=== PATIENT | female | born 1975 | race Caucasian/White ===

== ENCOUNTER → 2017-02-27 | Outpatient (CLI) | payer MEDICARE, OTHER ==
--- NOTE | ~2017-02-27 | US17 ---
[facility] A Service of [facility] / [facility] RADIOLOGY TEXT RESULTS PATIENT: SILVIANO LEE LOCATION: [facility] : 71 UNIT #: [id number] AGE: [address]: SUSANNA MARIN SEX: F ORDER DR: [id number] [place] [id number] [facility]. [place], [place] [address] [id number] O MR#: [id number] Acc #: [id number] NAME: SILVIANO LEE : 1975 SEX: F STUDY DATE/TIME: 02/27/2017 13:56 UNIT: [facility] ROOM: STUDY DESCRIPTION: US Breast Bilateral Ordering Physician: Ochoa Malcolm Primary Care Physician: Patricio Juarez Sr., M.D. MEDICAL IMAGING REPORT This report is preliminary unless electronic signature is present EXAM Bilateral diagnostic breast ultrasound 02/27/2017 HISTORY Complex appearing cystic lesions within each breast on previous screening mammogram for which additional diagnostic 6-month ultrasound followup was recommended. COMPARISON Bilateral breast ultrasound 02/27/2016 and 11/25/2012. FINDINGS Target sonographic imaging was obtained of each breast. Multi-cystic changes are scattered throughout each breast. At the 2 o'clock axis of the right breast, 2 cm from the nipple, a 6 x 3 mm [id number] hypoechoic lesion is demonstrated, thought to represent a complex cyst, unchanged from 08/28/2016 and 02/27/2016. In the 6 o'clock axis left breast, mildly complex cyst is seen. When measured in a comparable fashion plane, it is thought to be a stable finding since 08/28/2016. It actually appears slightly smaller in the AP direction. IMPRESSION 1. BIRADS category 2. Benign findings in each breast. Multiple cysts or complex cysts are scattered throughout the breasts. The cysts recommended for surveillance imaging, in the 2 o'clock right breast and 6 o'clock left breast, appears stable to minimally smaller. Certainly, no new or suspicious solid appearing nodule is identified. 2. It is recommended the patient return for a routine annual [facility] A Service [facility] RADIOLOGY TEXT RESULTS PATIENT: SILVIANO LEE LOCATION: [facility] : 71 UNIT #: [id number] AGE: [address]: SUSANNA MARIN SEX: F ORDER DR: screening cycle. Certainly, mammography is considered the more optimal imaging study; however, if the patient cannot undergo mammography due to physical limitations, continued screening ultrasound would be the advised alternative. BIRADS: 2 Benign Finding. Dictated by... Autumn Awan M.D. THIS IS AN ELECTRONICALLY VERIFIED REPORT Autumn Awan M.D. at 03/02/2017 9:29 AM KASSI/january TD: 02/27/2017 17:18 JOB #: [id number] MEDICAL IMAGING REPORT Page 1 of 1 COPY
== END | disposition home or self-care (01) ==
LOC: CGUS 12:53
DX: N63 Unspecified lump in breast (principal); N60.11 Diffuse cystic mastopathy of right breast; N60.12 Diffuse cystic mastopathy of left breast
CPT/HCPCS: 76641